=== PATIENT | female | born 1995 | race Two or more races ===

== ENCOUNTER 2025-10-14 04:42 | Emergency (ER) | payer MEDICAID, OTHER ==
[~2025-10-14] VITALS: Ht 152.4 cm; Wt 76.3 kg
--- NOTE | 2025-10-14 05:33 | ED.PDOC ---
GI ASSESSMENT HPI Comments HPI: 30-year-old female came to ER for abdominal pain. Around 3:30 a.m., she woke up due to sudden-onset epigastric abdominal pain, associated nausea, vomiting and nonbloody diarrhea. Possibly he had spoiled food (birria). Denies any possibility of Past Medical History: Gallstones Past Surgical History: Denies Social History: Denies PÉREZ: HPI: Poor Historian. Denies , denies any recent traveling outside the country, vomit is nonbilious nonbloody. REVIEW OF SYSTEMS: CONSTITUTIONAL: Denies acute: fever, diaphoresis, chills, generalized weakness. HEAD: Denies acute: headache, photophobia Eyes: Denies acute: Double vision, vision loss, eye pain, eye discharge. EARS: Denies acute: tinnitus, hearing loss, ear discharge, ear pain, THROAT: Denies acute: sore throat, swelling, difficulty swallowing , pain with swallowing, change in voice. NECK: Denies acute: neck pain, neck swelling, stiff neck. HEART: Denies acute : chest pain, palpitations, LUNGS: Denies acute: SOB, wheezing, cough, hemoptysis ABDOMEN: Denies acute: melena , hematemesis, hematochezia SKIN: Denies acute: rash, redness, lesions, itchiness. EXTREMITIES: Denies acute: calf pain, numbness, tingling, weakness, denies pain in extremity. Denies acute: Low back pain. Neuro: Denies acute: focal neurological deficit, motor or sensory focal neurological deficit, tremors, seizure like activity, confusion, dizziness, change in mental status, loss of bowel or bladder function, cauda equina like symptoms. : Denies acute: dysuria, hematuria, flank pain, increase in urinary frequency. PSYCH: Denies acute: hallucination, suicidal ideation, homicidal ideation. FEMALE: Denies acute: abnormal vaginal bleeding, foul odor, unusual discharge. PHYSICAL EXAM: General: ----moderate----acute distress, awake and alert. Head: normocephalic, atraumatic. No raccoon's eyes, no tapia sign. Neck: supple, trachea is midline, no swelling. Throat: Normal phonation. Eyes:, no erythema, no purulent discharge, no proptosis, no icterus. Heart: regular rate, regular rhythm, no significant murmur appreciated. Lungs: no apparent respiratory distress, Able to speak in full sentences. No wheezing, no rhonchi, no crackles. No stridors Clear to auscultation bilaterally. Abdomen: Periumbilical tender to palpation, non distended, soft, no guarding, no rebound, + bowel sounds. Neuro: Awake, Alert, oriented to name, self, situation, follows commands GCS=15. Speech is normal. Skin: no petechia, no purpura, no cyanosis, non-pale, not jaundice. Lower extremities: --no - Pitting edema no deformity, no focal swelling, no calf TTP. Makes eye contact. moves all four extremities. Face: no apparent facial droop. Ambulating in the ED independently. ED COURSE: DISCLAIMER: This medical document was created using an electronic medical record system with voice recognition software and computerized dictation system. Although this document has been carefully reviewed, there might still be some phonetic and typographical errors. Occasional wrong-word or "sound-alike" substitutions may have occurred due to the inherent limitations of voice recognition software. These areas are purely typographical due to imperfections of the software programs and do not reflect any compromise in the patient's medical care. Please read the chart carefully and recognize, using context, where these substitutions have occurred. Chief Complaint: Abdominal Pain Time Seen by MD: 05:33 Reviewed Notes: Nurses Notes, Allergies Information Source: Patient Mode of Arrival: Ambulatory Past Medical History PAST MEDICAL HISTORY: Gallstones Was a procedure done? Was a procedure done?: No GI differential Dx Differential Diagnosis: Gastritis/PUD, Gastroenteritis, Dehydration, Food Poisoning, Bacterial, Parasitic, Viral, Other (DDX include Diverticulitis, colitis, gastroenteritis, acute abdomen, SBO, enteritis, constipation, volvulus, appendicitis, Gallbladder disease, choledocolithiasis, ascending cholangitis, pancreatitis, intraAbdominal mass/neoplasm, hepatitis, UTI, pylonephritis, kidney stone, aneurysm, dissection, Inflammatory bowel disease, gastroparesis, ischemic bowel,,,,,,Food poisoning, bacterial/parasitic/viral etiology, trauma, diabetes DKA,ovarian torsion, ovarian cyst/mass, tubo-ovarian abscess, , ectopic , PID, STD.) X-Ray, Labs, Meds, VS Vital Signs Date Time Temp Pulse Resp B/P (MAP) Pulse Ox O2 Delivery O2 Flow Rate FiO2 10/14/25 04:44 97.8 115 20 141/89 95 97.8 Time of 1ST Reevaluation: 05:31 Reevaluation 1ST: Unchanged Time of 2ND Reevaluation: 06:40 (Labs are still pending) Patient Education/Counseling: Diagnosis, Treatment Family Education/Counseling: No Family Present Assigned to Dr. Dr. Landaverde. Comments MDM: patient presented with the above HPI.--abdominal pain nausea vomiting diarrhea----workup was initiated. patient was found with the above mentioned diagnosis. the following medications were ordered: please refer to order lists of meds and tests obtained by myself Dr. Hicks. All labs are still pending. CT scan of the abdomen and pelvis is unremarkable. Care of this patient was transitioned to my colleague Dr. Landaverde to follow up on labs and make the appropriate disposition. SEPSIS Sepsis Screen Date sepsis recognized/suspect: Oct 14, 2025 Time Sepsis recognized/suspect: 045 Recent Procedure: No On Antibiotic Therapy: No Respiratory Rate >20: No Heart Rate >90: Yes Temp<36 C (96.8 F) or >38.3 C: No SBP <90 or MAP <65 mmHG: No New Acute Mental Status Change: No Is the patient on CPAP, BIPAP,: No Physician Orders Complete Blood Count (10/14/25 05:21) Comprehensive Metabolic Panel (10/14/25 05:21) Lipase (10/14/25 05:21) Urinalysis (10/14/25 05:21) Stool Wbc (10/14/25 05:21) Ova & Parasite Exam (10/14/25 05:21) Stool Bacterial Culture (10/14/25 05:21) Lactic Acid W/ Reflex Order (10/14/25 05:21) Clostridium Difficile Toxin (10/14/25 05:21) Ct Ab Pel Wo Con-No Oral Or Iv (10/14/25 05:21) Drug Screen (10/14/25 05:21) Test, Urine (10/14/25 05:21) Vital Signs Date Time Temp Pulse Resp B/P (MAP) Pulse Ox O2 Delivery O2 Flow Rate FiO2 10/14/25 04:44 97.8 115 20 141/89 95 97.8 Departure 1 Departure Time of Disposition: 06:41 Impression: Primary Impression: Umbilical pain Additional Impression: Nausea vomiting and diarrhea Disposition: 30 STILL A PATIENT Condition: Stable Discharged With: Self, Relative Critical Care Note Critical Care Time?: No I personally scribed for KRISHNA HICKS DO ([email or web address]) on 10/14/25 at 05:33. [facility] I personally scribed for KRISHNA HICKS DO ([email or web address]) on 10/14/25 at 05:53. Electronically submitted by [facility] De P[facility] ([facility] KRISHNA HICKS DO Oct 14, 2025 05:33
--- NOTE | 2025-10-14 06:10 | DVH ---
Exam: CT CT AB PEL WO CON-NO ORAL OR IV History: n/v/d abd pain Comparison Study: None TECHNIQUE: Multidetector CT of the abdomen and pelvis was performed from lung bases to pubic symphysis. Imaging was performed without IV contrast. Axial, coronal and sagittal multiplanar reformats were obtained from the axial data set by the technologist. Radiation optimization: All CT scans at this facility use at least one of these dose optimization techniques: automated exposure control mA and/or kV adjustment per patient size (includes targeted exams where dose is matched to clinical indication) or iterative reconstruction. Radiation Dose Information: CT Dose: CTDI volume is 9.76 mGy. Dose-length product is 560.99 mGy*cm FINDINGS: Evaluation of solid organs is limited due to lack of intravenous contrast use. Imaged portions of the lung bases appear unremarkable. There is a small hiatal hernia. Liver, gallbladder, spleen, pancreas and adrenal glands appear unremarkable. The kidneys appear symmetric without hydronephrosis. There is no evidence of bowel obstruction or focal bowel wall thickening. The appendix appears normal in caliber with hyperdense material within. The uterus is anteverted. Intrauterine contraceptive device is located in suboptimal position within the lower uterine segment / cervix. No free fluid, free air, or adenopathy. No suspicious osseous lesion. IMPRESSION: 1. No acute abdominal or pelvic finding. 2. IUD in abnormal position within the lower uterine segment/ cervix.
[2025-10-14] MEDS ORDERED: ONDANSETRON HCL 4 MG/2 ML VIAL ONE (07:05)
[2025-10-14] MEDS ORDERED: MORPHINE SULFATE 4 MG/ML SYR/VIAL ONE (07:05)
[2025-10-14] MEDS: SODIUM CHLORIDE 0.9% 1,000 ML IV ONE (07:15)
[2025-10-14] MEDS: ONDANSETRON HCL 4 MG/2 ML VIAL IV ONE (07:30)
[2025-10-14] MEDS: MORPHINE SULFATE 4 MG/ML SYR/VIAL IV ONE (07:30)
[2025-10-14 07:45] LABS: Hemoglobin 12.2 g/dL (12.2-16.2)
[2025-10-14 07:47] LABS: Hematocrit 38.0 % (36.0-46.0); Mean Corpuscular Hemoglobin 23.1 pg (28.0-32.0); Mean Corpuscular Volume 72.1 fL (80.0-100.0); Nucleated Red Blood Cells % 0.1 %
[2025-10-14 07:59] LABS: Alanine Aminotransferase 26 U/L (7-40); Alkaline Phosphatase 65 U/L (46-116); Anion Gap 12 (5-15); BUN/Creatinine Ratio 15.5 (10.0-20.0); Blood Urea Nitrogen 11 mg/dL (9-23); Calcium 9.3 mg/dL (8.7-10.4); Carbon Dioxide 24 mmol/L (20-31); Chloride 103 mmol/L (98-107); Potassium 3.8 mmol/L (3.5-5.1); Sodium 139 mmol/L (136-145)
[2025-10-14 08:00] LABS: Bilirubin, Total 0.4 mg/dL (0.2-1.0)
[2025-10-14 08:06] LABS: Albumin 4.9 g/dL (3.2-4.8); Glucose 114 mg/dL (74-106); Total Protein 8.3 g/dL (5.7-8.2)
[2025-10-14 08:21] LABS: Urine Protein, UAD TRACE (Negative)
[2025-10-14 08:23] LABS: Amphetamine Screen, Urine Neg (NEGATIVE); Barbiturate Scree,Urine Neg (NEGATIVE); Benzodiazephine Screen, Urine Neg (NEGATIVE); Cannabinoid Screen, Urine Neg (NEGATIVE); Cocaine Screen, Urine Neg (NEGATIVE); Opiate Scree,Urine Neg (NEGATIVE); Phencyclidine Screen, Urine Neg (NEGATIVE)
[2025-10-14 08:32] VITALS: BP 151/89; PULSE 78; RESP 16; TEMP 98.1; O2SAT 100
[2025-10-14 08:48] LABS: Lipase 43 U/L (12-53)
--- NOTE | 2025-10-14 09:28 | ED.PDOC ---
Departure 1 Departure Time of Disposition: 09:26 (Patient presented with abdominal pain that was concerning for possible appendicits, gastritis, cholecystitis, colitis, gastroenteritis, or orther possible surgical emergency. Data: 1. I ordered and reviewed the result of at least 3 labs including a CBC, BMP, and Urinalysis. 2. I independently interpreted the following tests: CT Abdoment and Pelvis is concerning for benign abdomen.Risk:This patient has a high risk of morbidity due to further diagnostic testing or treatment and may suffer from an acute abdominal process disorder. Fortunately workup reveals benign abdomen and patient can be safely discharged to home with outpatient follow up.) Impression: Primary Impression: Umbilical pain Additional Impression: Nausea vomiting and diarrhea Disposition: HOME / SELF CARE / HOMELESS Condition: Stable Additional Instructions: Your workup today was benign including benign labs and CT scan. You should stay well rested and well hydrated. For pain you can take the followinam: Ibuprofen 400mg with food Noon: Acetaminophen 1000mg 4pm: Ibuprofen 400mg with food 8pm: Acetaminophen 1000mg You should follow up with your regular doctor within one week to ensure you are doing better. If your symptoms worsen or you have any other concerns then please return to the ER. Discharged With: Self, Relative Critical Care Note Critical Care Time?: Yes Critical care comment: Intractable abdominal pain Authorized and Performed by: Miller Landaverde MD Total critical care time: Approximately 39 minutes Due to a high probability of clinically significant, life threatening deterioration, the patient required my highest level of preparedness to intervene emergently and I personally spent this critical care time directly and personally managing the patient. This critical care time included obtaining a history; examining the patient; pulse oximetry; ordering and review of studies; arranging urgent treatment with development of a management plan; evaluation of patient's response to treatment; frequent reassessment; and, discussions with other providers. This critical care time was performed to assess and manage the high probability of imminent, life-threatening deterioration that could result in multi-organ failure. It was exclusive of separately billable procedures and treating other patients and teaching time. Please see my other sections and the rest of the note for further information on patient assessment and treatment. MILLER LANDAVERDE MD Oct 14, 2025 09:28
== END 2025-10-14 09:41 | disposition home or self-care (01) ==
LOC: ER 04:42
DX: R10.33 Periumbilical pain (principal); R19.7 Diarrhea, unspecified; R11.2 Nausea with vomiting, unspecified
CPT/HCPCS: 36415; 74176; 80053; 80307; 81001; 81025; 83605; 83690; 85025; 96361; 96374; 96375; 99285; J2270; J2405; J7030

== ENCOUNTER 2025-10-17 13:03 | Inpatient (IN) | payer MEDICAID ==
[~2025-10-17] VITALS: Ht 152.4 cm; Wt 74.7 kg
--- NOTE | 2025-10-17 13:55 | ED.PDOC ---
GI ASSESSMENT HPI Comments 30 year old female presents to the ED with a chief complaint of diarrhea onset 3 days. Patient has been experiencing diarrhea, nausea, vomiting, diffused abdominal pain for the past 3 days, was seen in this ED on 10/14/25, states medication given improved her symptoms temporary. Patient states pain has worsened, has not been able to eat or drink due to symptoms. Patient is tearful during assessment. Denies fever, chills, chest pain, shortness of breath, dizziness, hematemesis, melena, blood in stool ,dysuria, hematuria. No other symptoms or modifying factors present at this time. Chief Complaint: Abdominal Pain Time Seen by MD: 13:50 Reviewed Notes: Medications, Allergies Allergies: Coded Allergies: NO KNOWN ALLERGIES (Unverified , 10/14/25) Information Source: Patient Mode of Arrival: Ambulatory Timing: Days Duration: Since onset Prehospital treatment: None Quality: Sharp Stool: Loose Severity: Moderate Recent: None Recent Hx of: None Pain Location: Diffuse Associated sign and symptoms: Nausea, Vomiting, Diarrhea, Abdominal Pain Past Medical History PAST MEDICAL HISTORY: Gallstones Surgical History: Denies all surgeries DIRECTOR MARKETING COMMUNICATIONS History: No Pertinent DIRECTOR MARKETING COMMUNICATIONS History Family History Family History: Reviewed,noncontributory to illness, No family hx of Cancer, No family hx of DM, No family hx of Heart meche, No family hx of HTN, No family hx ofKidney meche, No family hx of Liver meche, No family hx of Lung meche, No family hx of Stroke Social History Smoker: Non-Smoker Alcohol: Denies ETOH Use Drugs: Denies Drug Use Lives In: Home Constitutional: denies: chills, diaphoresis, fatigue, fever, malaise, sweats, weakness, others EENTM: denies: blurred vision, double vision, ear bleeding, ear discharge, ear drainage, ear pain, ear ringing, eye pain, eye redness, hearing loss, mouth pain, mouth swelling, nasal discharge, nose bleeding, nose congestion, nose pain, photophobia, tearing, throat pain, throat swelling, voice changes, others Respiratory: denies: cough, hemoptysis, orthopnea, SOB at rest, shortness of breath, SOB with excertion, stridor, wheezing, others Cardiovascular: denies: chest pain, dizzy spells, diaphoresis, Dyspnea on exertion, edema, irregular heart beat, left arm pain, lightheadedness, pa lpitations, PND, syncope, others Gastrointestinal: reports: abdominal pain, diarrhea, nausea, poor appetite, poor fluid intake, vomiting; denies: abdomen distended, blood streaked bowels, constipated, dysphagia, difficulty swallowing, hematemesis, melena, rectal bleeding, rectal pain, others Genitourinary: denies: abnormal vagina bleeding, burning, dyspareunia, dysuria, flank pain, frequency, hematuria, incontinence, pain, , vagina discharge, urgency, others Neurological: denies: dizziness, fainting, headache, left sided numbness, left sided weakness, numbness, paresthesia, pre-existing deficit, right sided numbness, right sided weakness, seizure, speech problems, tingling, tremors, weakness, others Musculoskeletal: denies: back pain, gout, joint pain, joint swelling, muscle pain, muscle stiffness, neck pain, others Integumetry: denies: bruises, change in color, change in hair/nails, dryness, laceration, lesions, lumps, rash, wounds, others Allergic/Immunocompromised: denies: Difficulty Healing, Frequent Infections, Hives, Itching, others Hematologic/Lymphatic: denies: anemia, blood clots, easy bleeding, easy bruising, swollen glands, others Endocrine: denies: excessive hunger, excessive sweating, excessive thirst, excessive urination, flushing, intolerance to cold, intolerance to heat, unexplained weight gain, unexplained weight loss, others Psychiatric: denies: anxiety, bipolar disorder, depression, hopeless, panic disorder, schizophrenia, sleepless, suicidal, others All Other Systems: Reviewed and Negative Physical Exam General Appearance: Moderate Distress, Normal HEENT: Normal ENT Inspection, Pharynx Normal, TMs Normal Neck: Full Range of Motion, Non-Tender, Normal, Normal Inspection Respiratory: Chest Non-Tender, Lungs Clear, No Accessory Muscle Use, No Respiratory Distress, Normal Breath Sounds Cardiovascular: No Edema, No JVD, No Murmur, No Gallop, Normal Peripheral Pulses, Regular Rate/Rhythm Breast Exam: Deferred Gastrointestinal: No Organomegaly, No Pulsatile Mass, Normal Bowel Sounds, Soft Genitalia: Deferred Pelvic: Deferred Rectal: Deferred Extremities: No calf tenderness, Normal capillary refill, Normal inspection, Normal range of motion, Non-tender, No pedal edema Musculoskeletal : Apperance: Normal Neurologic: Alert, heating equipment installer II-XII nml as Tested, No Motor Deficits, Normal Affect, Normal Mood, No Sensory Deficits Cerebellar Function: Normal Reflexes: Normal Skin: Dry, Normal Color, Warm Peripheral Pulses: 3+ Radial (R), 3+ Radial (L) Lymphatic: No Adenopathy Was a procedure done? Was a procedure done?: No GI differential Dx Differential Diagnosis: Constipation, Diverticular disease, Esophagitis, Gastritis/PUD, Gastroenteritis X-Ray, Labs, Meds, VS Vital Signs Date Time Temp Pulse Resp B/P (MAP) Pulse Ox O2 Delivery O2 Flow Rate FiO2 10/17/25 13:08 98.1 101 20 165/111 100 98.1 Lab Test 10/17/25 14:13 Range/Units White Blood Count 14.4 H 4.4-10.8 10^3/uL Red Blood Count 5.39 H 4.0-5.20 10^6/uL Hemoglobin 12.3 12.2-16.2 g/dL Hematocrit 38.9 36.0-46.0 % Mean Corpuscular Volume 72.2 L 80.0-100.0 fL Mean Corpuscular Hemoglobin 22.8 L 28.0-32.0 pg Mean Corpuscular Hemoglobin Concent 31.6 L 32.0-36.0 g/dL Red Cell Distribution Width 17.1 H 11.8-14.3 % Platelet Count 408 140-450 10^3/uL Mean Platelet Volume 6.8 L 6.9-10.8 fL Neutrophils (%) (Auto) 79.8 37.0-80.0 % Lymphocytes (%) (Auto) 15.5 10.0-50.0 % Monocytes (%) (Auto) 4.3 0.0-12.0 % Eosinophils (%) (Auto) 0.3 0.0-7.0 % Basophils (%) (Auto) 0.1 0.0-2.0 % Neutrophils # (Auto) 11.5 H 1.6-8.6 10 ^3/uL Lymphocytes # (Auto) 2.2 0.4-5.4 10 ^3/uL Monocytes # (Auto) 0.6 0-1.3 10 ^3/uL Eosinophils # (Auto) 0 0-0.8 10 ^3/uL Basophils # (Auto) 0 0-0.2 10 ^3/uL Nucleated Red Blood Cells 0.0 % Sodium Level 142 136-145 mmol/L Potassium Level 3.6 3.5-5.1 mmol/L Chloride Level 106 98-107 mmol/L Carbon Dioxide Level 24 20-31 mmol/L Anion Gap 12 5-15 Blood Urea Nitrogen Pending Creatinine Pending Glomerular Filtration Rate Calc Pending BUN/Creatinine Ratio Pending Serum Glucose Pending Calcium Level 9.5 8.7-10.4 mg/dL Patient alert. Complaining of abdominal pain. Was seen here recently for the same symptom. Vitals stable. WBC elevated. Possible colitis. Possible gastroenteritis. Establish intravenous access. Was given fluids. Was given Rocephin. Was given Flagyl. Explained to the patient. Time of 1ST Reevaluation: 14:20 Reevaluation 1ST: Unchanged Patient Education/Counseling: Diagnosis, Treatment, Prognosis Family Education/Counseling: No Family Present SEPSIS Sepsis Screen Date sepsis recognized/suspect: Oct 17, 2025 Time Sepsis recognized/suspect: 131 Recent Procedure: No On Antibiotic Therapy: No Respiratory Rate >20: No Heart Rate >90: Yes Temp<36 C (96.8 F) or >38.3 C: No SBP <90 or MAP <65 mmHG: No New Acute Mental Status Change: No Is the patient on CPAP, BIPAP,: No Physician Orders Urinalysis (10/17/25 13:52) Sodium Chloride 0.9% (10/17/25 14:00) Basic Metabolic Panel (10/17/25 13:52) Vital Signs Date Time Temp Pulse Resp B/P (MAP) Pulse Ox O2 Delivery O2 Flow Rate FiO2 10/17/25 13:08 98.1 101 20 165/111 100 98.1 Laboratory Tests Test 10/17/25 14:13 White Blood Count 14.4 10^3/uL (4.4-10.8) H Departure 1 Departure Time of Disposition: 14:38 Impression: Primary Impression: Acute abdominal pain Additional Impression: Gastroenteritis Disposition: 09 ADMITTED INPATIENT Admit to: Med Surg Condition: Guarded Critical Care Note Critical Care Time?: Yes (90 min-critical care time only) Stability Stability form required: No Heart Score Heart Score: Heart Score Response (Comments) Value History N/A 0 EKG N/A 0 Age N/A 0 Risk Factors N/A 0 Troponin N/A 0 Total 0 I personally scribed for NIURKA SABILLON MD ([email or web address]) on 10/17/25 at 13:54. Electronically submitted by Tori Marks ([email or web address]). NIURKA SABILLON MD Oct 17, 2025 13:54
[2025-10-17 14:24] LABS: Nucleated Red Blood Cells % 0.0 %
[2025-10-17 14:25] LABS: Hematocrit 38.9 % (36.0-46.0); Hemoglobin 12.3 g/dL (12.2-16.2); Mean Corpuscular Hemoglobin 22.8 pg (28.0-32.0); Mean Corpuscular Volume 72.2 fL (80.0-100.0)
[2025-10-17 14:27] LABS: Chloride 106 mmol/L (98-107); Potassium 3.6 mmol/L (3.5-5.1); Sodium 142 mmol/L (136-145)
[2025-10-17 14:28] LABS: Anion Gap 12 (5-15); Calcium 9.5 mg/dL (8.7-10.4); Carbon Dioxide 24 mmol/L (20-31)
[2025-10-17 14:33] LABS: BUN/Creatinine Ratio 15.8 (10.0-20.0); Blood Urea Nitrogen 12 mg/dL (9-23); Glucose 93 mg/dL (74-106)
[2025-10-17 15:44] LABS: Urine Budding Yeast OCCASIONAL /hpf (None Seen); Urine Protein, UAD Negative (Negative)
--- NOTE | 2025-10-17 16:25 | DVH ---
CLINICAL HISTORY: colitis TECHNIQUE: CT of the abdomen and pelvis was performed without IV contrast. This exam was performed according to our departmental dose optimization program. Up-to-date CT equipment and radiation dose reduction techniques are utilized as appropriate. CTDI 8.1 DLP 446.5 COMPARISON: CT CT AB PEL WO CON-NO ORAL OR IV on DOS: 10/14/25 FINDINGS: Abdomen/Pelvis: The spleen, pancreas, adrenal glands, kidneys, gallbladder, liver, and bladder are grossly unremarkable. There is an IUD which appears within the lower uterine segment/ cervix. The abdominal aorta is normal in course and caliber. There are no significant atherosclerotic calcifications. There is no free intraperitoneal air or fluid. There is no enlarged abdominal pelvic lymph node. There is no small bowel wall thickening or dilatation. The appendix is normal. There is mild pancolonic wall thickening. Other: The imaged lower thorax is unremarkable. No acute osseous abnormality is evident. Impression: Mild pancolonic wall thickening, compatible with colitis. IUD malpositioned at the lower uterine segment/ cervix.
[2025-10-17] MEDS: SODIUM CHLORIDE 0.9% 1,000 ML IVB ONE (16:40)
[2025-10-17 16:46] VITALS: PULSE 85; RESP 18; O2SAT 100
[2025-10-17] MEDS: SODIUM CHLORIDE 0.9% 1,000 ML IV ONE ×2 (17:49→20:58)
[2025-10-17] MEDS: ONDANSETRON HCL 4 MG/2 ML VIAL IV ONE (17:59)
[2025-10-17] MEDS: MORPHINE SULFATE 4 MG/ML SYR/VIAL IV ONE (18:01)
[2025-10-17] MEDS ORDERED: ACETAMINOPHEN 325 MG TAB PO PRN (19:30)
[2025-10-17] MEDS ORDERED: LOPERAMIDE HCL 2 MG CAP/TAB PO PRN (19:30)
[2025-10-17] MEDS ORDERED: MORPHINE SULFATE INJ 2 MG/ml SYRG IV PRN (19:30)
[2025-10-17] MEDS ORDERED: HYDROcodone-ACET 5/325MG TAB PO PRN (19:30)
[2025-10-17] MEDS ORDERED: ONDANSETRON HCL 4 MG/2 ML VIAL IV PRN (19:30)
[2025-10-17 20:55] VITALS: BP 148/88; PULSE 95; RESP 16; TEMP 98.4; O2SAT 100
[2025-10-17] MEDS: PANTOPRAZOLE 40 MG/10 ML VIAL INJ IV ONE (20:58)
--- NOTE | 2025-10-17 22:05 | DVHHP2 ---
History of Present Illness Reason for Visit: Abdominal pain History of Present Illness 30-year-old female presents for evaluation of abdominal pain. Patient endorses a three day history of lower abdominal pain that is sharp in nature with associated nausea, vomiting and two days of diarrhea and intermittent chills. Currently rates the pain at 5/10 intensity. Past Medical History Gallstones Past Surgical History Denies Family History Noncontributory Smoke: No ALCOHOL: none Drugs: None Lives: with Family Review of Systems Review of Systems Review of systems are currently negative otherwise addressed in HPI. Allergies: Coded Allergies: NO KNOWN ALLERGIES (Unverified , 10/14/25) Medications Current Medications Medications Dose Ordered Sig/Adilson Route Start Time Stop Time Status Last Admin Dose Admin Ceftriaxone Sodium 50 ml @ 100 mls/hr DAILY@09 IV 10/18/25 09:00 Metronidazole 100 ml @ 100 mls/hr Q8HR IV 10/17/25 22:00 Pantoprazole Sodium 40 mg DAILY IV 10/18/25 10:00 Loperamide HCl 2 mg PRN PRN PO 10/17/25 19:30 Acetaminophen/ Hydrocodone Bitart 1 tab Q4HP PRN PO 10/17/25 19:30 Ondansetron HCl 4 mg Q4HP PRN IV 10/17/25 19:30 Acetaminophen 650 mg Q6HP PRN PO 10/17/25 19:30 Morphine Sulfate 2 mg Q6HPRN PRN IV 10/17/25 19:30 Exam Vital Signs Vital Signs Date Time Temp Pulse Resp B/P (MAP) Pulse Ox O2 Delivery O2 Flow Rate FiO2 10/17/25 20:55 98.4 95 16 148/88 (108) 100 98.4 10/17/25 16:46 Room Air* 0 21 Exam Gen: 30-year-old female in mild distress. Skin: Warm, dry, normal color and texture, no rash. HEENT: Normocephalic atraumatic, mucous membranes moist and pink. Neck: Cervical and supraclavicular nodes normal without enlargement, trachea is midline, thyroid gland is normal without masses. Pulmonary: Clear to auscultation and percussion bilaterally. Cardiac: Regular rate and rhythm. No murmur Abdomen: Soft, lower abdominal tenderness, nondistended, bowel sounds present all 4 quadrants, no guarding, no rigidity, no organomegaly. Extremities: No cyanosis, clubbing, no edema Neuro: Cranial nerves II through XII grossly intact, normal affect and speech, no focal motor deficits. Labs/Xrays ORDERING PHYSICIAN: NIURKA SABILLON MD PROCEDURE(s): ABPL - CT AB PEL WO CON-NO ORAL OR IV REASON: colitis ORDER NUMBER(s): [id number], ACCESSION NUMBER(s): [id number] CLINICAL HISTORY: colitis TECHNIQUE: CT of the abdomen and pelvis was performed without IV contrast. This exam was performed according to our departmental dose optimization program. Up-to-date CT equipment and radiation dose reduction techniques are utilized as appropriate. CTDI 8.1 DLP 446.5 COMPARISON: CT CT AB PEL WO CON-NO ORAL OR IV on DOS: 10/14/25 FINDINGS: Abdomen/Pelvis: The spleen, pancreas, adrenal glands, kidneys, gallbladder, liver, and bladder are grossly unremarkable. There is an IUD which appears within the lower uterine segment/ cervix. The abdominal aorta is normal in course and caliber. There are no significant atherosclerotic calcifications. There is no free intraperitoneal air or fluid. There is no enlarged abdominal pelvic lymph node. There is no small bowel wall thickening or dilatation. The appendix is normal. There is mild pancolonic wall thickening. Other: The imaged lower thorax is unremarkable. No acute osseous abnormality is evident. Impression: Mild pancolonic wall thickening, compatible with colitis. IUD malpositioned at the lower uterine segment/ cervix. Labs Test 10/17/25 15:08 10/17/25 14:56 10/17/25 14:13 Range/Units Urine Color Colorless Yellow Urine Clarity Clear Clear Urine pH 5.5 5.0-9.0 Urine Specific [place] 1.009 1.001-1.035 Urine Protein Negative Negative Urine Ketones Negative Negative Urine Blood Trace H Negative /uL Urine Nitrite Negative Negative Urine Bilirubin Negative Negative Urine Urobilinogen Normal Negative mg/dL Urine Leukocyte Esterase 3+ Negative /uL Urine RBC 3 0 - 4 /hpf Urine Microscopic WBC 6 H 0-5 /HPF Urine Squamous Epithelial Cells Few <5 /hpf Urine Bacteria None seen None Seen /hpf Urine Yeast (Budding) Occasional None Seen /hpf Urine Glucose Normal Normal mg/dL Lactic Acid Level 1.6 0.4-2.0 mmol/L White Blood Count 14.4 H 4.4-10.8 10^3/uL Red Blood Count 5.39 H 4.0-5.20 10^6/uL Hemoglobin 12.3 12.2-16.2 g/dL Hematocrit 38.9 36.0-46.0 % Mean Corpuscular Volume 72.2 L 80.0-100.0 fL Mean Corpuscular Hemoglobin 22.8 L 28.0-32.0 pg Mean Corpuscular Hemoglobin Concent 31.6 L 32.0-36.0 g/dL Red Cell Distribution Width 17.1 H 11.8-14.3 % Platelet Count 408 140-450 10^3/uL Mean Platelet Volume 6.8 L 6.9-10.8 fL Neutrophils (%) (Auto) 79.8 37.0-80.0 % Lymphocytes (%) (Auto) 15.5 10.0-50.0 % Monocytes (%) (Auto) 4.3 0.0-12.0 % Eosinophils (%) (Auto) 0.3 0.0-7.0 % Basophils (%) (Auto) 0.1 0.0-2.0 % Neutrophils # (Auto) 11.5 H 1.6-8.6 10 ^3/uL Lymphocytes # (Auto) 2.2 0.4-5.4 10 ^3/uL Monocytes # (Auto) 0.6 0-1.3 10 ^3/uL Eosinophils # (Auto) 0 0-0.8 10 ^3/uL Basophils # (Auto) 0 0-0.2 10 ^3/uL Nucleated Red Blood Cells 0.0 % Sodium Level 142 136-145 mmol/L Potassium Level 3.6 3.5-5.1 mmol/L Chloride Level 106 98-107 mmol/L Carbon Dioxide Level 24 20-31 mmol/L Anion Gap 12 5-15 Blood Urea Nitrogen 12 9-23 mg/dL Creatinine 0.76 0.550-1.02 mg/dL Glomerular Filtration Rate Calc 107 >90 mL/min BUN/Creatinine Ratio 15.8 10.0-20.0 Serum Glucose 93 74-106 mg/dL Calcium Level 9.5 8.7-10.4 mg/dL SEPSIS Sepsis Screen Date sepsis recognized/suspect: Oct 17, 2025 Time Sepsis recognized/suspect: 1311 Recent Procedure: No On Antibiotic Therapy: No Respiratory Rate >20: No Heart Rate >90: Yes Temp<36 C (96.8 F) or >38.3 C: No SBP <90 or MAP <65 mmHG: No New Acute Mental Status Change: No Is the patient on CPAP, BIPAP,: No Physician Orders Blood Culture (10/17/25 14:38) Ct Ab Pel Wo Con-No Oral Or Iv (10/17/25 14:40) Ceftriaxone 1gm/50ml (Rocephin) (10/18/25 09:00) Metronidazole 500mg/100ml (Flagyl 500mg/ (10/17/25 22:00) * [facility] Desktop Technician (10/17/25 19:24) Pantoprazole (Protonix) (10/18/25 10:00) Stool Bacterial Culture (10/17/25 19:24) Loperamide Capsule (Imodium Capsule) (10/17/25 19:30) Basic Metabolic Panel (10/18/25 04:00) Admit (10/17/25 19:24) Hydrocodone-Acet 5/325mg Tab ([place] 5/32 (10/17/25 19:30) Ondansetron Hcl (Zofran) (10/17/25 19:30) Complete Blood Count (10/18/25 04:00) Condition: Stable (10/17/25 19:24) Acetaminophen Tablet (Tylenol Tablet) (10/17/25 19:30) Clear Liq Diet (10/18/25 Breakfast) Bedrest With Bathroom Privileg (10/17/25 19:24) Morphine Sulfate Injection (10/17/25 19:30) Vital Signs Date Time Temp Pulse Resp B/P (MAP) Pulse Ox O2 Delivery O2 Flow Rate FiO2 10/17/25 20:55 98.4 95 16 148/88 (108) 100 98.4 10/17/25 18:36 98.2 78 17 136/82 (100) 100 98.2 10/17/25 18:01 89 18 131/86 10/17/25 16:46 85 18 100 Room Air* 0 21 10/17/25 16:45 98.1 85 18 138/81 (100) 100 98.1 10/17/25 16:29 98.8 76 18 148/96 (113) 100 98.8 10/17/25 14:43 98.8 78 18 152/97 (115) 100 98.8 Laboratory Tests Test 10/17/25 14:13 10/17/25 14:56 White Blood Count 14.4 10^3/uL (4.4-10.8) H Lactic Acid Level 1.6 mmol/L (0.4-2.0) Medications Medications Dose Ordered Sig/Adilson Route Start Time Stop Time Status Last Admin Dose Admin Ceftriaxone Sodium 50 ml @ 100 mls/hr ONCE ONCE IV 10/17/25 14:45 10/17/25 15:14 DC 10/17/25 16:39 100 MLS/HR Metronidazole 100 ml @ 100 mls/hr ONCE ONCE IV 10/17/25 14:45 10/17/25 15:44 DC 10/17/25 18:02 100 MLS/HR Morphine Sulfate 4 mg ONCE ONCE IV 10/17/25 14:00 10/17/25 14:01 DC 10/17/25 18:01 4 MG Ondansetron HCl 4 mg ONCE ONCE IV 10/17/25 14:00 10/17/25 14:01 DC 10/17/25 17:59 4 MG Pantoprazole Sodium 40 mg ONCE ONCE IV 10/17/25 19:30 10/17/25 19:43 DC 10/17/25 20:58 40 MG Sodium Chloride 1,000 ml @ 150 mls/hr Q6H40M ONCE IV 10/17/25 14:45 10/17/25 21:24 DC 10/17/25 20:58 150 MLS/HR Sodium Chloride 1,000 ml @ 1,000 mls/hr Q1H ONCE IV 10/17/25 14:45 10/17/25 15:44 DC 10/17/25 17:49 1,000 MLS/HR Sodium Chloride 1,000 ml @ 1,000 mls/hr Q1H ONCE IVB 10/17/25 14:00 10/17/25 14:59 DC 10/17/25 16:40 1,000 MLS/HR Assessment/Plan Assessment/Plan Assessment Acute colitis Urinary tract infection Leukocytosis Obesity Plan Admit the patient to [facility] to the hospitalist Jose Alfredo/P[facility] consult Pain management Continue treatment per orders Plan discussed with: Patient My Orders Orders - FITZ SOLOMON Procedure Category Date Status Time Ceftriaxone 1gm/50ml PHA 10/18/25 In Process (Rocephin) 09:00 Metronidazole PHA 10/17/25 In Process 500mg/100ml (Flagyl 22:00 * [facility] Desktop Technician CONS 10/17/25 Transmitted 19:24 Pantoprazole PHA 10/18/25 In Process (Protonix) 10:00 Stool Bacterial MEHRAN 10/17/25 Logged Culture 19:24 Loperamide Capsule PHA 10/17/25 In Process (Imodium Capsule) 19:30 Basic Metabolic Panel LAB 10/18/25 Verified 04:00 Admit ADMIT 10/17/25 Transmitted 19:24 Hydrocodone-Acet PHA 10/17/25 In Process 5/325mg Tab ([place] 19:30 Ondansetron Hcl PHA 10/17/25 In Process (Zofran) 19:30 Complete Blood Count LAB 10/18/25 Verified 04:00 Condition: Stable SHARLENE 10/17/25 In Process 19:24 Acetaminophen Tablet PHA 10/17/25 In Process (Tylenol Tablet) 19:30 Clear Liq Diet DIET 10/18/25 Transmitted Breakfast Bedrest With Bathroom SHARLENE 10/17/25 In Process Privileg 19:24 Morphine Sulfate PHA 10/17/25 In Process Injection 19:30 Date of Service: Oct 17, 2025 Billing Provider: FITZ SOLOMON Common Visit Codes: [id number] INP/OBS CARE (MOD) FITZ SOLOMON Oct 17, 2025 22:05
[2025-10-18] MEDS ORDERED: PANTOPRAZOLE 40 MG/10 ML VIAL INJ IV SCH (10:00)
== END 2025-10-17 22:39 | disposition left against medical advice (07) | DRG 248 ==
LOC: ER 13:03 → OVERFLOW 19:24
PROVIDERS: ADMIT Nurse Practitioner; ATTEND Nurse Practitioner
DX: A04.9 Bacterial intestinal infection, unspecified (principal); E66.9 Obesity, unspecified; N39.0 Urinary tract infection, site not specified; Z68.32 Body mass index [BMI] 32.0-32.9, adult; Z53.29 Procedure and treatment not carried out because of patient's decision for other reasons
CPT/HCPCS: 36415; 74176; 80048; 81001; 83605; 85025; 87040; 96361; 96365; 96367; 96375; 99291; 99292; G0378; J2405; J2470; J3490